=== PATIENT | female | born 1955 | race Caucasian/White ===

== ENCOUNTER → 2016-08-19 | Outpatient (CLI) | payer MEDICARE, OTHER ==
[~2016-08-19] MED LIST: ALPRAZOLAM PO; LORTAB 7.5-5001 TAB PO; NASONEX17 GM; NORCO 10/325 TA1 TAB PO; PRILOSEC PO; PROZAC PO; QVAR7.3 G1 IH; TRAZODONE PO; WELLBUTRIN XL PO; WELLBUTRIN XL150 MG PO; ZANAFLEX PO
[2016-08-19 14:50] LABS: HEMOGLOBIN 10.1 gm/dL (12.0-16.0); MEAN CELL VOLUME 109.6 FL (83-96); MEAN CORPUSCULAR HEMOGLOBIN 37.1 PG (28-34); MEAN CORPUSCULAR HGB CONC 33.9 g/dL (30-36); MEAN PLATELET VOLUME 9.3 FL (6.5-11.5); RED BLOOD COUNT 2.73 X10e (3.90-5.30); RED CELL DISTRIBUTION WIDTH 13.8 % (11.0-15.5); WHITE BLOOD COUNT 4.4 X10e3 (4.0-10.5)
[2016-08-19 15:21] LABS: BILIRUBIN, DIRECT 0.1 mg/dL (0.0-0.2); BILIRUBIN,INDIRECT 0.3 mg/dL (0.0-0.9); BILIRUBIN,TOTAL 0.4 mg/dL (0.2-2.0)
== END | disposition home or self-care (01) ==
LOC: CLAB 14:03
PROVIDERS: Dermatology
DX: L92.1 Necrobiosis lipoidica, not elsewhere classified (principal)
CPT/HCPCS: 36415; 80076; 85027